=== PATIENT | male | born 1990 | race Caucasian/White ===

== ENCOUNTER 2024-10-08 13:25 | Outpatient (CLI) | payer OTHER, SELFPAY ==
--- NOTE | ~2024-10-08 | MR_ITS ---
EXAMINATION: MR knee RT wo con DATE: 10/08/2024 14:10 INDICATION: Internal derangement of the right knee TECHNIQUE: Magnetic resonance imaging (MRI) of the right knee was performed without intravenous contr ast. Sequences included coronal PD-weighted FSE, coronal PD-weighted FS FSE, sagittal T2-weighted FS E, sagittal PD-weighted FS FSE and axial PD weighted fat saturated FSE. COMPARISON: None. FINDINGS: Medial compartment: Longitudinal horizontal tear of the medial meniscus which extends to the inferior articular surface a nd the posterior horn, crossing the free edge at the posterior body extending to the superior articul ar surface and the midportion of the meniscal body. Small para meniscal cyst extending 1.3 cm medial to lateral along the periphery of the posterior horn and measuring up to 4 mm in maximal orthogonal d imensions. Articular cartilage is normal. Lateral compartment: Lateral meniscus is normal. Articular cartilage is normal. Patellofemoral compartment: Articular cartilage is normal. Ligaments and tendons: Anterior and posterior cruciate ligaments are normal. The medial collateral ligament and fibular abbie ateral ligament complex are normal. The extensor mechanism is normal. The visualized medial and later al hamstring tendons as well as the iliotibial band are normal. Fluid: Physiologic amount of fluid in the joint space. No loose osteochondral bodies identified. Osseous/other: Normal marrow signal. No fracture or pathologic marrow replacing process. IMPRESSION: 1. Longitudinal horizontal tear of the medial meniscus with parameniscal cyst along the periphery of the posterior horn. Reviewed, dictated and finalized at location A. [employer] IMPRESSION: 1. Longitudinal horizontal tear of the medial meniscus with parameniscal cyst a long the periphery of the posterior horn.
== END 2024-10-08 13:26 | disposition home or self-care (01) ==
LOC: ANHIMG 13:34
PROVIDERS: Visit Provider Physician Assistant
DX: S83.241A Other tear of medial meniscus, current injury, right knee, initial encounter (principal); X58.XXXA Exposure to other specified factors, initial encounter; M23.009 Cystic meniscus, unspecified meniscus, unspecified knee; M23.91 Unspecified internal derangement of right knee
CPT/HCPCS: 73721